=== PATIENT | female | born 1965 | race African-American/Black ===

== ENCOUNTER 2016-10-06 11:26 | Emergency (ER) | payer SELFPAY ==
[~2016-10-06] VITALS: Ht 167.6 cm; Wt 80.0 kg
[~2016-10-06 11:26] MED LIST: AMLO10 PO; HYDR12.56 PO; MOBI7.5T PO; OXYC15TA PO
[2016-10-06 11:29] VITALS: BP 146/87; PULSE 88; RESP 18; TEMP 97.9; O2SAT 100
--- NOTE | 2016-10-06 14:52 | PD ---
HPI Chief Complaint: Complaint Time Seen by Provider: 14:46 Travel History International Travel<30 days: No Contact w/Intl Traveler<30days: No Traveled to known affect area: No History of Present Illness HPI Patient is a 51-year-old female presenting to emergency department for evaluation of urinary symptoms. Patient states she has been unable to completely empty her bladder since yesterday. She states it feels pressure- like and straining. She denies any back pain, nausea, vomiting, fever, chills. Patient reports a history of lithotripsy with ureteral stent placement. Patient also reports swelling in her toes and feet, she states this has been going on for well over a year. PFSH Past Medical History Asthma: No Anxiety: Yes Heart Rhythm Problems: Yes Cancer: Yes (UNTREATED LUNG CANCER disgnosed 2007 [facility] ) Cardiac Catheterization: No Cardiovascular Problems: Yes High Cholesterol: No Congestive Heart Failure: No COPD: No Diabetes: No Diminished Hearing: No Endocrine: No Genitourinary: Yes (kidney stents) Hypertension: Yes Immune Disorder: No Kidney Stones: Yes Musculoskeletal: Yes (BULGING DISCS; PINCHED NERVE; LOW BACK PAIN) Respiratory: Yes (bronchitis) Migraines: Yes Sleep Apnea: No ?: Not : 3 Para: 2 Miscarriage: 1 Tubal Ligation: Yes Past Surgical History Coronary Artery Bypass Graft: No Genitourinary Surgery: Yes (STENTS PLACED IN BOTH KIDNEYS) Hysterectomy: Yes (partial) Other Surgery: Yes (STENTS PLACED IN RT KIDNEY) Social History Alcohol Use: Yes (OCC) Tobacco Use: Yes (8CIGS/DAY) Substance Use: No (denies) Allergies-Medications (Allergen,Severity, Reaction): Coded Allergies: Lisinopril (Verified Allergy, Severe, 05/29/16) Flagyl (Verified Allergy, Intermediate, Itching, 05/29/16) Reported Meds & Prescriptions Reported Meds & Active Scripts Active Macrobid (Nitrofurantoin Monoh/Nitrofur Macro) 100 Mg Cap 100 Mg PO BID 7 Days Hydrochlorothiazide (Miscellaneous Medication) 12.5 Mg Cap 12.5 Mg PO DAILY 30 Days Mobic (Meloxicam) 7.5 Mg Tab 15 Mg PO DAILY 14 Days Norvasc (Amlodipine Besylate) 10 Mg Tab 10 Mg PO DAILY 30 Days Reported Oxycodone (Oxycodone HCl) 15 Mg Tab 30 Mg PO DIRECTED PRN Review of Systems Except as stated in HPI: all other systems reviewed are Neg General / Constitutional: No: Fever, Chills HENT: No: Headaches Cardiovascular: No: Chest Pain or Discomfort Respiratory: No: Shortness of Breath Gastrointestinal: No: Nausea, Vomiting, Abdominal Pain Genitourinary: Positive: Frequency, Dysuria, Decreased Urinary Output, Hesitancy, No: Pelvic Pain, Flank Pain Physical Exam Narrative GENERAL: Well-developed, well-nourished, alert female. Resting comfortably in no acute distress. SKIN: Warm and dry. HEAD: Atraumatic. Normocephalic. EYES: Pupils equal and round. No scleral icterus. No injection or drainage. ENT: No nasal bleeding or discharge. Mucous membranes pink and moist. NECK: Trachea midline. No JVD. CARDIOVASCULAR: Regular rate and rhythm. No murmur appreciated. RESPIRATORY: No accessory muscle use. Clear to auscultation. Breath sounds equal bilaterally. GASTROINTESTINAL: Abdomen soft, non-tender, nondistended. Hepatic and splenic margins not palpable. MUSCULOSKELETAL: No obvious deformities. No clubbing. No cyanosis. No edema. NEUROLOGICAL: Awake and alert. No obvious cranial nerve deficits. Motor grossly within normal limits. Normal speech. PSYCHIATRIC: Appropriate mood and affect; insight and judgment normal. Data Data Last Documented VS Vital Signs Date Time Temp Pulse Resp B/P Pulse Ox O2 Delivery O2 Flow Rate FiO2 10/06/16 16:41 70 15 169/99 98 10/06/16 11:29 97.9 Orders Urinalysis - C+S If Indicated (10/06/16 14:42) Urine Culture (10/06/16 14:35) Nitrofurantoin Monohyd Macrocr (Macrobid (10/06/16 16:00) Labs Laboratory Tests Test 10/06/16 14:35 Urine Color YELLOW Urine Turbidity CLOUDY Urine pH 6.0 Urine Specific [place] 1.021 Urine Protein 100 mg/dL Urine Glucose (UA) NEG mg/dL Urine Ketones NEG mg/dL Urine Occult Blood LARGE Urine Nitrite NEG Urine Bilirubin NEG Urine Urobilinogen 4.0 MG/DL Urine Leukocyte Esterase LARGE Urine RBC /hpf Urine WBC /hpf Urine Squamous Epithelial 2 /hpf Cells Urine Bacteria FEW /hpf Urine Mucus FEW /lpf Microscopic Urinalysis Comment CULTURE INDICATED MDM Medical Decision Making Medical Screen Exam Complete: Yes Emergency Medical Condition: Yes Medical Record Reviewed: Yes Interpretation(s) Vital Signs Date Time Temp Pulse Resp B/P Pulse Ox O2 Delivery O2 Flow Rate FiO2 10/06/16 11:29 97.9 88 18 146/87 100 Differential Diagnosis Obstruction versus urinary tract infection versus pyelonephritis versus other Narrative Course Patient is a 51-year-old female presenting to the emergency department for evaluation of urinary symptoms that started yesterday. Patient's a history of lithotripsy with ureteral stent placement. Urinalysis is ordered and pending. Workup was initiated in triage. Care of patient will be transferred to provider when medical bed is available. Scripts Nitrofurantoin Monohydrate Macrocrystals (Macrobid)100 Mg Neu137 Mg PO BID 7 Days Ref 0 Prov:Vee Mathias DO 10/06/16 Wendy Newby Oct 06, 2016 14:52
[2016-10-06 15:21] LABS: BACTERIA, URINE FEW /hpf; BLOOD, URINE LARGE (NEG); GLUCOSE,URINE NEG (NEG); KETONE, URINE NEG (NEG); MUCUS URINE FEW /lpf (OCC); NITRITE,URINE NEG (NEG); SQUAMOUS EPITHELIAL CELL URINE 2 /hpf (0-5); URINE COLOR YELLOW (YELLW/STRAW)
[2016-10-06 15:24] LABS: COMMENT (UR) CULTURE INDICATED; CULTURE IF INDICATED CULTURE INDICATED
--- NOTE | 2016-10-06 15:53 | PD ---
HPI Chief Complaint: Complaint Time Seen by Provider: 15:48 Travel History International Travel<30 days: No Contact w/Intl Traveler<30days: No Traveled to known affect area: No History of Present Illness HPI 51-year-old female presents with dysuria and urinary hesitancy. Symptoms started yesterday. She reports some pain when she urinates and the sensation that she is straining when she urinates. Denies abdominal pain, flank pain, hematuria, nausea, vomiting, fevers, chills. In addition she reports some pain in her feet for over a year. She has no other complaints. She seems to have a history of tobacco abuse as well as ureteral stones per chart review. PFSH Past Medical History Asthma: No Anxiety: Yes Heart Rhythm Problems: Yes Cancer: Yes (UNTREATED LUNG CANCER disgnosed 2007 [facility] ) Cardiac Catheterization: No Cardiovascular Problems: Yes High Cholesterol: No Congestive Heart Failure: No COPD: No Diabetes: No Diminished Hearing: No Endocrine: No Genitourinary: Yes (kidney stents) Hypertension: Yes Immune Disorder: No Kidney Stones: Yes Musculoskeletal: Yes (BULGING DISCS; PINCHED NERVE; LOW BACK PAIN) Respiratory: Yes (bronchitis) Migraines: Yes Sleep Apnea: No ?: Not : 3 Para: 2 Miscarriage: 1 Tubal Ligation: Yes Past Surgical History Coronary Artery Bypass Graft: No Genitourinary Surgery: Yes (STENTS PLACED IN BOTH KIDNEYS) Hysterectomy: Yes (partial) Other Surgery: Yes (STENTS PLACED IN RT KIDNEY) Social History Alcohol Use: Yes (OCC) Tobacco Use: Yes (8CIGS/DAY) Substance Use: No (denies) Allergies-Medications (Allergen,Severity, Reaction): Coded Allergies: Lisinopril (Verified Allergy, Severe, 05/29/16) Flagyl (Verified Allergy, Intermediate, Itching, 05/29/16) Reported Meds & Prescriptions Reported Meds & Active Scripts Active Macrobid (Nitrofurantoin Monoh/Nitrofur Macro) 100 Mg Cap 100 Mg PO BID 7 Days Hydrochlorothiazide (Miscellaneous Medication) 12.5 Mg Cap 12.5 Mg PO DAILY 30 Days Mobic (Meloxicam) 7.5 Mg Tab 15 Mg PO DAILY 14 Days Norvasc (Amlodipine Besylate) 10 Mg Tab 10 Mg PO DAILY 30 Days Reported Oxycodone (Oxycodone HCl) 15 Mg Tab 30 Mg PO DIRECTED PRN Review of Systems Except as stated in HPI: all other systems reviewed are Neg Physical Exam Narrative GENERAL: Well-nourished female in no acute distress SKIN: Warm and dry. Some calluses are noted on the soles of both feet. HEAD: Atraumatic. Normocephalic. EYES: Pupils equal and round. No scleral icterus. No injection or drainage. ENT: No nasal bleeding or discharge. Mucous membranes pink and moist. NECK: Trachea midline. No JVD. CARDIOVASCULAR: Regular rate and rhythm. No murmur appreciated. RESPIRATORY: No accessory muscle use. Clear to auscultation. Breath sounds equal bilaterally. GASTROINTESTINAL: Abdomen soft, non-tender, nondistended. Hepatic and splenic margins not palpable. No CVA tenderness. MUSCULOSKELETAL: No obvious deformities. No edema. 2+ dorsalis pedis and posterior tibial pulses bilaterally. NEUROLOGICAL: Awake and alert. No obvious cranial nerve deficits. Motor grossly within normal limits. Normal speech. PSYCHIATRIC: Appropriate mood and affect; insight and judgment normal. Data Data Last Documented VS Vital Signs Date Time Temp Pulse Resp B/P Pulse Ox O2 Delivery O2 Flow Rate FiO2 10/06/16 11:29 97.9 88 18 146/87 100 Orders Urinalysis - C+S If Indicated (10/06/16 14:42) Urine Culture (10/06/16 14:35) Nitrofurantoin Monohyd Macrocr (Macrobid (10/06/16 16:00) Labs Laboratory Tests Test 10/06/16 14:35 Urine Color YELLOW Urine Turbidity CLOUDY Urine pH 6.0 Urine Specific [place] 1.021 Urine Protein 100 mg/dL Urine Glucose (UA) NEG mg/dL Urine Ketones NEG mg/dL Urine Occult Blood LARGE Urine Nitrite NEG Urine Bilirubin NEG Urine Urobilinogen 4.0 MG/DL Urine Leukocyte Esterase LARGE Urine RBC /hpf Urine WBC /hpf Urine Squamous Epithelial 2 /hpf Cells Urine Bacteria FEW /hpf Urine Mucus FEW /lpf Microscopic Urinalysis Comment CULTURE INDICATED MDM Medical Decision Making Medical Screen Exam Complete: Yes Emergency Medical Condition: Yes Medical Record Reviewed: Yes Differential Diagnosis Cystitis, ureteral stone, pyelonephritis Narrative Course The patient's urinalysis is symptoms are consistent with cystitis. She appears well. Her abdomen is soft and nontender. In addition she complains of bilateral foot pain for 1 year. I suspect neuropathy. There is no evidence of DVT, peripheral vascular disease or infectious process. Recommend follow-up with primary care physician. She is being given information on how to apply for patient assistance. She is being started on Macrobid pending urine culture results. Diagnosis Primary Impression: Urinary tract infection Qualified Code: N30.01 - Acute cystitis with hematuria Additional Instructions: Antibiotic as prescribed. Follow-up with primary care physician. Return for any emergent medical conditions. Med/Other Pt SpecificInfo: Prescription(s) given Scripts Nitrofurantoin Monohydrate Macrocrystals (Macrobid)100 Mg [id number] Mg PO BID 7 Days Ref 0 Prov:Vee Mathias DO 10/06/16 Disposition: 01 DISCHARGE HOME Condition: Stable Shaheed Sanchez Oct 06, 2016 15:53
[2016-10-06] MEDS ORDERED: MACR100C2 PO (15:58)
[2016-10-06] MEDS ORDERED: NITROFURANTOIN MONOHYD MACROCR 100 MG CAP PO ONE (16:00)
[2016-10-06 16:41] VITALS: BP 169/99
== END 2016-10-06 16:43 | disposition home or self-care (01) ==
LOC: NEPE 11:26
DX: N39.0 Urinary tract infection, site not specified (principal); I10 Essential (primary) hypertension; F17.210 Nicotine dependence, cigarettes, uncomplicated; B96.20 Unspecified Escherichia coli [E. coli] as the cause of diseases classified elsewhere; Z87.442 Personal history of urinary calculi
CPT/HCPCS: 81001; 87077; 87086; 87186; 99283

== ENCOUNTER 2017-09-26 12:39 | Emergency (ER) | payer SELFPAY ==
[~2017-09-26] VITALS: Ht 167.6 cm; Wt 89.0 kg
[~2017-09-26 12:39] MED LIST changes: +MACR100C2 PO
[2017-09-26 12:40] VITALS: BP 184/102; PULSE 89; RESP 18; TEMP 98.4; O2SAT 99
[2017-09-26] MEDS ORDERED: HYDR12.57 PO (12:50)
[2017-09-26] MEDS ORDERED: NAPROXEN 500 MG TAB PO ONE (13:00)
[2017-09-26] MEDS ORDERED: MEDR4PAK PO (13:02)
[2017-09-26] MEDS ORDERED: NAPR500T2 PO (13:02)
--- NOTE | 2017-09-26 13:02 | PD ---
HPI Chief Complaint: Injury Time Seen by Provider: 12:51 Travel History International Travel<30 days: No Contact w/Intl Traveler<30days: No Traveled to known affect area: No History of Present Illness HPI 52-year-old female presents to the emergency department with complaint of right wrist pain that she woke up with this morning. She said she did her sister's hair last night and woke up with the pain this morning. Says she cannot move her wrist secondary to pain. She reports some swelling to her wrist and hand. Reports paresthesias to her right third fourth fifth fingers, but denies loss of sensation. Denies decreased range of motion to all fingers. Denies fever, vomiting. Denies history of carpal tunnel syndrome. Denies traumatic injury. Rates pain 04/11. Has tried taking Advil for symptom management. No primary care provider. Allergies to lisinopril. History of hypertension and takes hydrochlorothiazide and has not taken her medication today. Has no other medical complaints. No other modifying factors or associated signs and symptoms. PFSH Past Medical History Asthma: No Anxiety: Yes Heart Rhythm Problems: Yes Cancer: Yes (UNTREATED LUNG CANCER disgnosed 2007 [facility] ) Cardiac Catheterization: No Cardiovascular Problems: Yes High Cholesterol: No Congestive Heart Failure: No COPD: No Diabetes: No Diminished Hearing: No Endocrine: No Genitourinary: Yes (kidney stents) Hypertension: Yes Immune Disorder: No Kidney Stones: Yes Musculoskeletal: Yes (BULGING DISCS; PINCHED NERVE; LOW BACK PAIN) Respiratory: Yes (bronchitis) Migraines: Yes Sleep Apnea: No ?: Not : 3 Para: 2 Miscarriage: 1 Tubal Ligation: Yes Past Surgical History Coronary Artery Bypass Graft: No Genitourinary Surgery: Yes (STENTS PLACED IN BOTH KIDNEYS) Hysterectomy: Yes (partial) Other Surgery: Yes (STENTS PLACED IN RT KIDNEY) Social History Alcohol Use: Yes (OCC) Tobacco Use: Yes (8CIGS/DAY) Substance Use: No (denies) Allergies-Medications (Allergen,Severity, Reaction): Coded Allergies: lisinopril (Unverified Allergy, Severe, 09/26/17) metronidazole (Unverified Allergy, Intermediate, Itching, 09/26/17) Reported Meds & Prescriptions Reported Meds & Active Scripts Active Medrol Dosepak (Methylprednisolone) 4 Mg Dspk 4 Mg PO DIRECTED Per Pharmacist direction Naproxen 500 Mg Tab 500 Mg PO BID 10 Days Reported Hydrochlorothiazide 12.5 Mg Cap 12.5 Mg PO DAILY Review of Systems Except as stated in HPI: all other systems reviewed are Neg Physical Exam Narrative GENERAL: Well-nourished, well-developed black female patient, in no acute distress SKIN: Warm and dry. HEAD: Atraumatic. Normocephalic. EYES: Pupils equal and round. No scleral icterus. No injection or drainage. ENT: Mucosa pink and moist. Airway patent. NECK: Trachea midline. CARDIOVASCULAR: Regular rate. RESPIRATORY: No accessory muscle use. GASTROINTESTINAL: Rounded. MUSCULOSKELETAL: Right wrist with tenderness on palpation; no erythema ; mild edema; decreased range of motion. Right hand with full range of motion at all joints. Right hand with decreased nursing assistant strength. Right upper extremity is supple and non-tense with 2+ radial pulse and sensory intact. No obvious deformities. No clubbing. No cyanosis. NEUROLOGICAL: Awake and alert. Oriented 3. No obvious cranial nerve deficits. Motor grossly within normal limits. Normal speech. PSYCHIATRIC: Appropriate mood and affect; insight and judgment normal. Data Data Last Documented VS Vital Signs Date Time Temp Pulse Resp B/P (MAP) Pulse Ox O2 Delivery O2 Flow Rate FiO2 09/26/17 13:15 09/26/17 12:40 98.4 89 18 99 Orders Orders Splint Or Brace Apply/Monitor (09/26/17 12:58) Naproxen (Naprosyn) (09/26/17 13:00) Ed Discharge Order (09/26/17 13:02) [facility] Medical Decision Making Medical Screen Exam Complete: Yes Emergency Medical Condition: Yes Medical Record Reviewed: Yes Differential Diagnosis Carpal tunnel syndrome, wrist sprain, wrist pain Narrative Course 52-year-old female with right wrist pain. Denies injury. I do not suspect fracture or dislocation of both imaging is not necessary at this time. Wrist splint and naproxen ordered. Medrol Dosepak, naproxen prescribed for home. Instructed patient to follow up with primary care provider. Patient verbalizes understanding and agreement with treatment plan. Patient is medically cleared and stable for discharge. Discussed reasons to return to the emergency department. Patient agrees with treatment plan. The patients vital signs are stable and the patient is stable for outpatient follow-up and treatment. Patient discharged home, stable and in no acute distress. Diagnosis Primary Impression: Right wrist pain Referrals: [facility] Hand Surgeon Primary Care Physician Patient Instructions: Carpal Tunnel Syndrome (GEN), Carpal Tunnel Syndrome Exercises (GEN), General Instructions Additional Instructions: Wrist splint for support; can use at night while sleeping Avoid sleeping on your hands to help ease pain and numbness in your wrist and hand Rotate your wrist and stretch your palms and fingers Take a pain reliever, such as Advil, Motrin, ibuprofen, Aleve as needed and as directed Follow-up with primary care provider Follow-up with hand surgeon as needed Return to the emergency department immediately with worsening of symptoms Med/Other Pt SpecificInfo: Prescription(s) given Scripts Methylprednisolone Dosepak (Medrol Dosepak) 4 Mg Dspk 4 MG PO DIRECTED, #1 DSPK 0 Refills Per Pharmacist direction Prov: Natasha Chakraborty 09/26/17 Naproxen (Naproxen) 500 Mg Tab 500 MG PO BID for 10 Days, #20 TAB 0 Refills Prov: Natasha Chakraborty 09/26/17 Disposition: 01 DISCHARGE HOME Condition: Stable Natasha Chakraborty Sep 26, 2017 13:02
== END 2017-09-26 13:24 | disposition home or self-care (01) ==
LOC: NEPD 12:39
DX: M25.531 Pain in right wrist (principal); F41.9 Anxiety disorder, unspecified; I10 Essential (primary) hypertension; F17.210 Nicotine dependence, cigarettes, uncomplicated; Z85.118 Personal history of other malignant neoplasm of bronchus and lung
CPT/HCPCS: 99283; L3908

== ENCOUNTER 2017-09-28 12:20 | Emergency (ER) | payer SELFPAY ==
[~2017-09-28] VITALS: Ht 167.6 cm; Wt 89.9 kg
[~2017-09-28 12:20] MED LIST changes: -AMLO10 PO; -HYDR12.56 PO; +HYDR12.57 PO; -MACR100C2 PO; +MEDR4PAK PO; -MOBI7.5T PO; +NAPR500T2 PO; -OXYC15TA PO
[2017-09-28 12:36] VITALS: BP 180/100; PULSE 72; RESP 18; TEMP 98; O2SAT 99
[2017-09-28 15:10] LABS: AUTOMATED NEUTROPHIL # 4.9 TH/MM3 (1.8-7.7); BASOPHIL # 0.2 TH/MM3 (0-0.2); BASOPHIL % 2.1 % (0.0-2.0); EOSINOPHIL # 0.3 TH/MM3 (0-0.4); EOSINOPHIL % 2.9 % (0.0-4.0); HEMATOCRIT 44.2 % (35.0-46.0); HEMOGLOBIN 14.5 GM/DL (11.6-15.3); LYMPH % 33.8 % (9.0-44.0); LYMPHOCYTE # 3.1 TH/MM3 (1.0-4.8); MEAN CELL VOLUME 86.3 FL (80.0-100.0); MEAN CORPUSCULAR HEMOGLOBIN 28.3 PG (27.0-34.0); MEAN CORPUSCULAR HGB CONC 32.8 % (32.0-36.0); MEAN PLATELET VOLUME 8.2 FL (7.0-11.0); MONO % 7.1 % (0.0-8.0); MONOCYTE # 0.6 TH/MM3 (0-0.9); NEUT % 54.1 % (16.0-70.0); PLATELET COUNT 298 TH/MM3 (150-450); RED BLOOD COUNT 5.12 MIL/MM3 (4.00-5.30); RED CELL DISTRIBUTION WIDTH 13.9 % (11.6-17.2); WHITE BLOOD COUNT 9.1 TH/MM3 (4.0-11.0)
--- NOTE | 2017-09-28 15:15 | PD ---
HPI Chief Complaint: Pain: Acute or Chronic Time Seen by Provider: 14:45 Travel History International Travel<30 days: No Contact w/Intl Traveler<30days: No Traveled to known affect area: No History of Present Illness HPI This 52-year-old female says she is having burning pain in both of her legs. This is been going on for some time. At times she says several months of time for several weeks. There is no history of injury. The pain can be quite severe at times. She has not noted what makes it worse. She is not aware of any history of diabetes. She does have hypertension. She was a heavy drinker at one time. She says she is drinks only occasionally now. PFSH Past Medical History Asthma: No Anxiety: Yes Heart Rhythm Problems: Yes Cancer: Yes (UNTREATED LUNG CANCER disgnosed 2007 [facility] ) Cardiac Catheterization: No Cardiovascular Problems: Yes High Cholesterol: No Congestive Heart Failure: No COPD: No Diabetes: No Diminished Hearing: No Endocrine: No Genitourinary: Yes (kidney stents) Hypertension: Yes Immune Disorder: No Kidney Stones: Yes Musculoskeletal: Yes (BULGING DISCS; PINCHED NERVE; LOW BACK PAIN) Respiratory: Yes (bronchitis) Migraines: Yes Sleep Apnea: No ?: Not : 3 Para: 2 Miscarriage: 1 Tubal Ligation: Yes Past Surgical History Coronary Artery Bypass Graft: No Genitourinary Surgery: Yes (STENTS PLACED IN BOTH KIDNEYS) Hysterectomy: Yes (partial) Other Surgery: Yes (STENTS PLACED IN RT KIDNEY) Family History Family Myocardial Infarction: Yes Social History Alcohol Use: Yes (OCC) Tobacco Use: Yes (8CIGS/DAY) Substance Use: No (denies) Allergies-Medications (Allergen,Severity, Reaction): Coded Allergies: lisinopril (Unverified Allergy, Severe, 09/28/17) metronidazole (Unverified Allergy, Intermediate, Itching, 09/28/17) Reported Meds & Prescriptions Reported Meds & Active Scripts Active Medrol Dosepak (Methylprednisolone) 4 Mg Dspk 4 Mg PO DIRECTED Per Pharmacist direction Naproxen 500 Mg Tab 500 Mg PO BID 10 Days Reported Hydrochlorothiazide 12.5 Mg Cap 12.5 Mg PO DAILY Review of Systems General / Constitutional: No: Fever, Chills Eyes: No: Diploplia, Blurred Vision HENT: No: Headaches, Vertigo Cardiovascular: No: Chest Pain or Discomfort, Palpitations Respiratory: No: Cough, Shortness of Breath Gastrointestinal: No: Nausea, Vomiting Genitourinary: No: Urgency, Frequency Musculoskeletal: No: Myalgias, Arthralgias Skin: No Rash, No Itching Neurologic: No: Weakness, Dizziness Psychiatric: No: Anxiety Endocrine: No: Heat Intolerance, Cold Intolerance Hematologic/Lymphatic: No: Easy Bruising Physical Exam Narrative [-]GENERAL well-developed female SKIN: Focused skin assessment warm/dry. HEAD: Atraumatic. Normocephalic. EYES: Pupils equal and round. No scleral icterus. No injection or drainage. ENT: No nasal bleeding or discharge. Mucous membranes pink and moist. NECK: Trachea midline. No JVD. CARDIOVASCULAR: Regular rate and rhythm. No murmur appreciated. RESPIRATORY: No accessory muscle use. Clear to auscultation. Breath sounds equal bilaterally. GASTROINTESTINAL: Abdomen soft, non-tender, nondistended. Hepatic and splenic margins not palpable. MUSCULOSKELETAL: No obvious deformities. No clubbing. No cyanosis. No edema. NEUROLOGICAL: Awake and alert. No obvious cranial nerve deficits. Motor grossly within normal limits. Normal speech. Sensation appears symmetric but diminished in the feet. She has good peripheral pulses. Strength appears equal in plantar and dorsiflexion of the foot PSYCHIATRIC: Appropriate mood and affect; insight and judgment normal. Data Data Last Documented VS Vital Signs Date Time Temp Pulse Resp B/P (MAP) Pulse Ox O2 Delivery O2 Flow Rate FiO2 09/28/17 12:36 98.0 72 18 180/100 (126) 99 Orders Orders Complete Blood Count With Diff (09/28/17 14:52) Comprehensive Metabolic Panel (09/28/17 14:52) Labs Laboratory Tests Test 09/28/17 15:00 White Blood Count 9.1 TH/MM3 Red Blood Count 5.12 MIL/MM3 Hemoglobin 14.5 GM/DL Hematocrit 44.2 % Mean Corpuscular Volume 86.3 FL Mean Corpuscular Hemoglobin 28.3 PG Mean Corpuscular Hemoglobin Concent 32.8 % Red Cell Distribution Width 13.9 % Platelet Count 298 TH/MM3 Mean Platelet Volume 8.2 FL Neutrophils (%) (Auto) 54.1 % Lymphocytes (%) (Auto) 33.8 % Monocytes (%) (Auto) 7.1 % Eosinophils (%) (Auto) 2.9 % Basophils (%) (Auto) 2.1 % Neutrophils # (Auto) 4.9 TH/MM3 Lymphocytes # (Auto) 3.1 TH/MM3 Monocytes # (Auto) 0.6 TH/MM3 Eosinophils # (Auto) 0.3 TH/MM3 Basophils # (Auto) 0.2 TH/MM3 CBC Comment DIFF FINAL Differential Comment Blood Urea Nitrogen 10 MG/DL Creatinine 0.75 MG/DL Random Glucose 79 MG/DL Total Protein 8.1 GM/DL Albumin 4.0 GM/DL Calcium Level 9.0 MG/DL Alkaline Phosphatase 98 U/L Aspartate Amino Transf (AST/SGOT) 15 U/L Alanine Aminotransferase (ALT/SGPT) 16 U/L Total Bilirubin 0.5 MG/DL Sodium Level 141 MEQ/L Potassium Level 3.9 MEQ/L Chloride Level 108 MEQ/L Carbon Dioxide Level 27.0 MEQ/L Anion Gap 6 MEQ/L Estimat Glomerular Filtration Rate 98 ML/MIN MDM Medical Decision Making Medical Screen Exam Complete: Yes Emergency Medical Condition: Yes Medical Record Reviewed: Yes Differential Diagnosis Differential includes neuropathy, diabetes, electrolyte imbalance Narrative Course Lab work is unremarkable. Symptoms are consistent with peripheral neuropathy though etiology is not clear. I will prescribe Mobic and recommend follow-up Diagnosis Primary Impression: Neuropathy of both feet Scripts Meloxicam (Mobic) 7.5 Mg Tab 7.5 MG PO DAILY for Pain for 30 Days, #30 TAB 0 Refills Prov: Ashkan Lopez MD 09/28/17 Disposition: DISCHARGE HOME Condition: Stable Ashkan Lopez MD Sep 28, 2017 15:15
[2017-09-28 15:18] LABS: CHLORIDE 108 MEQ/L (98-107); SODIUM (NA) 141 MEQ/L (136-145)
[2017-09-28 15:21] LABS: GLUCOSE,RANDOM 79 MG/DL (74-106)
[2017-09-28 15:22] LABS: BLOOD UREA NITROGEN 10 MG/DL (7-18)
[2017-09-28 15:24] LABS: ALT (GPT) 16 U/L (10-53); AST (GOT) 15 U/L (15-37)
[2017-09-28 15:25] LABS: CREATININE 0.75 MG/DL (0.50-1.00); GLOMERULAR FILTRATION RATE 98 ML/MIN (>89)
[2017-09-28 15:26] LABS: TOTAL BILIRUBIN ADULT 0.5 MG/DL (0.2-1.0); TOTAL PROTEIN 8.1 GM/DL (6.4-8.2)
[2017-09-28 15:27] LABS: ALKALINE PHOSPHATASE 98 U/L (45-117)
[2017-09-28] MEDS ORDERED: MOBI7.5T PO (15:40)
[2017-09-28 15:55] VITALS: BP 183/100
== END 2017-09-28 16:02 | disposition home or self-care (01) ==
LOC: PHED 12:20
DX: G62.9 Polyneuropathy, unspecified (principal); I10 Essential (primary) hypertension; Z72.0 Tobacco use
CPT/HCPCS: 80053; 85025; 99283